=== PATIENT | female | born 1975 | race Caucasian/White ===

== ENCOUNTER 2016-08-31 15:07 | Emergency (ER) | payer MEDICARE, MEDICAID ==
[2016-08-31] MEDS ORDERED: SODIUM CHLORIDE 0.9% 1,000 ML ONE (17:56)
== END 2016-08-31 19:49 | disposition home or self-care (01) ==
LOC: ER 15:07
DX: H81.12 Benign paroxysmal vertigo, left ear (principal); H93.12 Tinnitus, left ear; R55 Syncope and collapse; F17.210 Nicotine dependence, cigarettes, uncomplicated
CPT/HCPCS: 36415; 71020; 80053; 83690; 85025; 96360